=== PATIENT | male | born 1955 | race Hispanic/Latino ===

== ENCOUNTER 2018-06-07 07:40 | Day surgery (SDC) | payer MEDICARE ==
[~2018-06-07] VITALS: Ht 175.3 cm; Wt 86.2 kg
[2018-06-07] VITALS (17 sets, daily range): BP systolic 116–136; BP diastolic 65–86
[2018-06-07] MEDS ORDERED: FAMO-136 PEG (09:05)
[2018-06-07] MEDS ORDERED: METO25TA6 PEG (09:05)
[2018-06-07] MEDS ORDERED: CALC-24 PEG (09:05)
[2018-06-07] MEDS ORDERED: BACL10TA PEG (09:05)
[2018-06-07] MEDS ORDERED: MULT-1192 PEG (09:05)
[2018-06-07] MEDS ORDERED: TRAM50TA4 PEG (09:05)
[2018-06-07] MEDS ORDERED: GLYC1TAB11 PO (09:05)
[2018-06-07] MEDS ORDERED: AEC81 PO (09:05)
[2018-06-07] MEDS ORDERED: DOCU-132 PEG (09:05)
[2018-06-07] MEDS ORDERED: SIMV10TA6 PO (09:05)
[2018-06-07] MEDS ORDERED: ACET-2893 PO (09:05)
[2018-06-07] MEDS ORDERED: POLY500P30 PEG (09:05)
[2018-06-07] MEDS ORDERED: ALBU2.5V2 IH (09:05)
[2018-06-07] MEDS ORDERED: SODIUM CHLORIDE 0.9% 1000ML 1,000 ML IV ONE (09:12)
[2018-06-07] MEDS ORDERED: ROCURONIUM 10MG/1ML SYR 10 MG/ML ML ONE (09:42)
[2018-06-07] MEDS ORDERED: PROPOFOL 10 MG/ML 20ML VIAL IV ONE ×2 (09:42→10:07)
[2018-06-07] MEDS ORDERED: IOHEXOL-350 50ML VIAL IV ONE (09:44)
[2018-06-07] MEDS: INDOMETHACIN 50 MG SUPP.RECT RC SCH ×3 (10:10→11:45)
--- NOTE | 2018-06-07 12:30 | NUR ---
DISCHARGE PT DISCHARGED VIA WHEELCHAIR WITH SISTER, WILL BE TRANSPORTED BY [facility]. PT STABLE. NOT IN ANY APPARENT DISTRESS. ABDOMEN REMAINS SOFT. AFEBRILE. NO SIGNS OF BLEEDING AND OTHER SX OF ACUTE PANCREATITIS. DISCHARGE INSTRUCTIONS GIVEN TO SISTER. REPORT AND DISCHARGE INSTRUCTIONS ALSO GIVEN TO [facility] N[facility]. COPIES OF REPORT PROVIDED TO SISTER AND FOR THE SENIOR LIVING.
== END 2018-06-07 12:30 ==
LOC: DAH 07:40 → ENDO 07:40
PROVIDERS: ATTEND Internal Medicine
DX: Z46.59 Encounter for fitting and adjustment of other gastrointestinal appliance and device (principal); K80.50 Calculus of bile duct without cholangitis or cholecystitis without obstruction; E78.5 Hyperlipidemia, unspecified; I10 Essential (primary) hypertension; Z86.73 Personal history of transient ischemic attack (TIA), and cerebral infarction without residual deficits; Z79.899 Other long term (current) drug therapy; Z98.890 Other specified postprocedural states; Z93.1 Gastrostomy status
CPT/HCPCS: 43264; 43275; 74330; A4606; C1769; C1773; J2704 ×2; J7030; Q9967